=== PATIENT | male | born 1995 | race Caucasian/White ===

== ENCOUNTER 2019-10-19 05:51 | Emergency (ER) | payer BC ==
[~2019-10-19] VITALS: Ht 177.8 cm; Wt 109.1 kg
[2019-10-19 06:58] LABS: CLARITY,URINE BLOODY (Clear); COLOR,URINE RED (Yellow); UA COLLECTION TYPE CLN CATCH MIDSTREAM
[2019-10-19] MEDS ORDERED: normal saline 1000ML IV soln IVB ONE (07:00)
[2019-10-19] MEDS ORDERED: ketorolac tromethamine 15mg/ml inj. IV ONE (07:00)
[2019-10-19] MEDS ORDERED: ondansetron/PF 4mg/2ml inj IV ONE (07:00)
[2019-10-19 07:07] LABS: MUCUS STRANDS NONE SEEN /LPF (Neg); RBC,URINE TNTC /HPF (0-2); SQUAMOUS EPITHELIAL CELL,UR FEW /LPF (FEW)
[2019-10-19 07:08] LABS: BACTERIA,URINE 1+ /HPF (Neg)
--- NOTE | 2019-10-19 07:35 | NUR ---
US TECH IN ROOM FOR PROCEDURE
[2019-10-19] MEDS ORDERED: tamsulosin 0.4mg capsule PO ONE (07:50)
[2019-10-19 08:07] VITALS: BP 107/66
--- NOTE | 2019-10-19 08:08 | NUR ---
PT STATES PAIN IS BETTER ABOUT A 4/10 MOSTLY IN THE GROIN AREA
[2019-10-19] MEDS ORDERED: ONDA4TAB6 PO (08:16)
[2019-10-19] MEDS ORDERED: FLO0.4C PO (08:16)
== END 2019-10-19 08:27 | disposition home or self-care (01) ==
LOC: ER 05:52
DX: R10.9 Unspecified abdominal pain (principal); M54.5 Low back pain; R11.0 Nausea; Z87.442 Personal history of urinary calculi; Z79.899 Other long term (current) drug therapy
CPT/HCPCS: 76775; 81001; 87088; 96374; 96375; 99284; J1885; J2405; J7040